=== PATIENT | male | born 1980 | race Caucasian/White ===

== ENCOUNTER 2020-08-30 08:44 | Emergency (ER) | payer OTHER ==
[~2020-08-30] VITALS: Ht 180.3 cm; Wt 121.0 kg
--- NOTE | 2020-08-30 09:21 | NUR ---
PT AMBULATORY TO ROOM 31 W/ C/O PALPITATIONS AND FEELING LIGHTHEADEDNESS STARTED TUESDAY NIGHT. PT STATES HE HAS HX ANXIETY/HTN. STATES HE'S NOT SURE IF HE GETS ANXIOUS THEN HAVE S/SX PALPITATIONS/LIGHTHEADEDNESS VS FEELING PALPITATIONS/LIGHTHEADEDNESS THEN BECOMING ANXIOUS. PT ALSO STATES HX HTN AND STATES BP INCREASED BEYOND PT NORMAL LIMITS. PT RESTING ON GURNEY. MONITORS APPLIED. NADN. VSS. PIV INITIATED. EDPA STUDENT AT BEDSIDE.
[2020-08-30 10:00] LABS: BASOPHILS % (AUTO) 1 % (0-1); EOSINOPHILS % (AUTO) 0 % (1-7); LYMPHOCYTES % (AUTO) 20 % (22-44); MEAN CORPUSCULAR HEMOGLOBIN 29.6 pg (27.5-34.5); MEAN CORPUSCULAR HGB CONC 34.6 g/dL (33.2-36.2); MEAN PLATELET VOLUME 8.8 fL (7.4-10.4); MONOCYTES % (AUTO) 6 % (2-9); NEUTROPHILS % (AUTO) 73 % (42-75); PLATELET COUNT 199 x10^3/uL (130-400); RED BLOOD COUNT 5.93 x10^6/uL (4.38-5.82); RED CELL DISTRIBUTION WIDTH 12.2 % (9.4-14.8)
[2020-08-30] MEDS ORDERED: LORazepam 2 MG/ML, 1ML IV ONE (10:00)
[2020-08-30 10:02] LABS: MD NO
[2020-08-30 10:10] LABS: ALANINE AMINOTRANSFERASE 43 U/L (12-78); ALBUMIN 4.4 g/dL (3.4-5.0); ANION GAP 6 mmol/L (5-15); CALCIUM 9.1 mg/dL (8.5-10.1); CHLORIDE 107 mmol/L (98-107); CREATININE 0.92 mg/dL (0.7-1.3)
[2020-08-30] MEDS ORDERED: LORazepam 2 MG/ML, 1ML ONE (10:11)
[2020-08-30 10:16] VITALS: BP 137/82
--- NOTE | 2020-08-30 10:17 | NUR ---
PT MEDICATED PER AUG. RESTING ON SANDER. VSS.
[2020-08-30 10:19] LABS: ALKALINE PHOSPHATASE 63 U/L (45-117); BILIRUBIN,TOTAL 1.1 mg/dL (0.2-1.0); TOTAL PROTEIN 8.1 g/dL (6.4-8.2)
[2020-08-30] MEDS ORDERED: POTASSIUM CHLORIDE 20 MEQ TAB.ER.PRT PO ONE (10:30)
[2020-08-30] MEDS ORDERED: POTASSIUM CHLORIDE 20 MEQ TAB.ER.PRT ONE (10:31)
[2020-08-31] MEDS ORDERED: LISI-167 PO (21:03)
== END 2020-08-30 10:58 | disposition home or self-care (01) ==
LOC: ED 09:59
DX: F43.9 Reaction to severe stress, unspecified (principal); R00.2 Palpitations; R42 Dizziness and giddiness; F41.9 Anxiety disorder, unspecified; R00.0 Tachycardia, unspecified; I10 Essential (primary) hypertension; F17.210 Nicotine dependence, cigarettes, uncomplicated; Z79.899 Other long term (current) drug therapy
CPT/HCPCS: 36415; 80053; 82306; 83735; 84443; 85025; 93005; 96374; 99284; J2060

== ENCOUNTER 2020-08-31 20:33 | Emergency (ER) | payer OTHER ==
[~2020-08-31] VITALS: Ht 177.8 cm; Wt 106.3 kg
[2020-08-31] MEDS ORDERED: LISI-167 PO (21:03)
[2020-08-31] MEDS ORDERED: LORazepam 1MG TABLET ONE (21:12)
[2020-08-31 21:21] LABS: BASOPHILS % (AUTO) 1 % (0-1); EOSINOPHILS % (AUTO) 1 % (1-7); LYMPHOCYTES % (AUTO) 28 % (22-44); MD NO; MEAN CORPUSCULAR HEMOGLOBIN 29.7 pg (27.5-34.5); MEAN CORPUSCULAR HGB CONC 34.9 g/dL (33.2-36.2); MEAN PLATELET VOLUME 8.8 fL (7.4-10.4); MONOCYTES % (AUTO) 8 % (2-9); NEUTROPHILS % (AUTO) 63 % (42-75); PLATELET COUNT 188 x10^3/uL (130-400); RED BLOOD COUNT 5.59 x10^6/uL (4.38-5.82); RED CELL DISTRIBUTION WIDTH 12.4 % (9.4-14.8)
--- NOTE | 2020-08-31 21:25 | NUR ---
PATIENT RESTING IN BED IN NAD. CALL POND IN REACH. S/O AT BEDSIDE. WILL CONTINUE TO MONITOR
[2020-08-31 21:29] LABS: ALBUMIN 4.2 g/dL (3.4-5.0); ANION GAP 10 mmol/L (5-15); CALCIUM 8.8 mg/dL (8.5-10.1); CHLORIDE 107 mmol/L (98-107); CREATININE 0.88 mg/dL (0.7-1.3)
[2020-08-31] MEDS ORDERED: LORazepam 1MG TABLET PO ONE (21:30)
--- NOTE | 2020-08-31 22:11 | NUR ---
PATIENT AMBULATED TO BATHROOM WITH STEADY GAIT. VS REMAIN STABLE ON RA. CALL POND IN REACH. PATIENT CONTINUES TO DENY CP/SOB. WILL CONTINUE TO MONITOR.
[2020-08-31 22:41] VITALS: BP 145/86
== END 2020-08-31 22:43 | disposition home or self-care (01) ==
LOC: ED 21:42
DX: R00.2 Palpitations (principal); F41.1 Generalized anxiety disorder; R00.0 Tachycardia, unspecified; R06.02 Shortness of breath; I10 Essential (primary) hypertension
CPT/HCPCS: 36415; 80048; 82040; 85025; 85379; 93005; 99284

== ENCOUNTER 2020-10-03 08:22 | Outpatient (CLI) | payer OTHER ==
[~2020-10-03 08:22] MED LIST: LISI-167 PO
== END 2020-10-03 23:59 | disposition home or self-care (01) ==
LOC: CVU 08:22
PROVIDERS: ATTEND Internal Medicine Cardiovascular Disease
DX: I10 Essential (primary) hypertension (principal)
CPT/HCPCS: 93306; 93356